=== PATIENT | female | born 1980 | race Asian ===

== ENCOUNTER → 2016-08-06 | Outpatient (CLI) | payer BC ==
[2016-08-06 19:26] LABS: FREE T4 1.09 NG/DL (0.76-1.46)
[2016-08-06 19:30] LABS: PROGESTERONE 3.2 NG/ML
[2016-08-06 19:31] LABS: FOLLICLE STIMULATING HORMONE 2.4 mIU/mL; LUTEINIZING HORMONE 1.1 mIU/mL; PROLACTIN 16.5 NG/ML
== END ==
LOC: M SMT 15:54
PROVIDERS: ATTEND Specialist
DX: N93.8 Other specified abnormal uterine and vaginal bleeding (principal)

== ENCOUNTER → 2017-07-22 | Outpatient (REF) | payer BC ==
[2017-07-24 14:20] LABS: HPV HYBRID CAPTURE II Negative (Negative)
== END ==
LOC: M LAB REF 09:15
DX: Z12.4 Encounter for screening for malignant neoplasm of cervix (principal)
CPT/HCPCS: G0123

== ENCOUNTER → 2017-08-01 | Outpatient (CLI) | payer BC ==
[2017-08-01 16:26] LABS: FOLLICLE STIMULATING HORMONE 2.1 mIU/mL; LUTEINIZING HORMONE 1.5 mIU/mL
[2017-08-01 16:26] LABS: PROGESTERONE 18.3 NG/ML
== END ==
LOC: M LAB 14:27
DX: N93.8 Other specified abnormal uterine and vaginal bleeding (principal)
CPT/HCPCS: 83001

== ENCOUNTER → 2019-07-21 | Outpatient (REF) | payer BC | LOC: M SFHCWAGY 10:13 | PROVIDERS: ATTEND Specialist | DX: Z12.4 Encounter for screening for malignant neoplasm of cervix (principal) | CPT/HCPCS: 87624; G0123 ==

== ENCOUNTER 2019-09-08 07:20 | Day surgery (SDC) | payer BC ==
[~2019-09-08] VITALS: Ht 157.5 cm; Wt 66.3 kg
[2019-09-08] VITALS (7 sets, daily range): BP systolic 97–121; BP diastolic 62–80; O2SAT 97
[~2019-09-08 07:20] MED LIST: FERR325T3 PO; LIDOCAINE 1% MDV 20ML VIAL SQ PRN; LR 1,000 ML IV ONE; MULTCAP PO; VITA200028 PO; ceFAZolin SOD 2 GM in IV 1 EA IV ONE
[2019-09-08 08:08] LABS: HEMATOCRIT 40.4 % (36.0-47.0); HEMOGLOBIN 13.3 g/dl (12.0-15.5); MEAN CORPUSCULAR HEMOGLOBIN 30.8 pg (27.0-33.0); MEAN CORPUSCULAR HGB CONC 32.9 g/dl (32.0-36.5); MEAN CORPUSCULAR VOLUME 93.5 fl (80.0-96.0); PLATELET COUNT, AUTOMATED 216 10^3/uL (150-450); RED BLOOD COUNT 4.32 10^6/uL (4.00-5.40); WHITE BLOOD COUNT 5.9 10^3/uL (4.0-10.0)
[2019-09-08] MEDS ORDERED: LIDOCAINE 2% INJ 100 MG/5 ML SDV (FOR ANES.) As Ordered ONE (08:09)
[2019-09-08] MEDS ORDERED: MIDAZOLAM INJ 2 MG/2 ML VIAL (J2250) As Ordered ONE (08:09)
[2019-09-08] MEDS ORDERED: propofoL 200 MG/20 ML VIAL As Ordered ONE (08:09)
[2019-09-08] MEDS ORDERED: ONDANSETRON 4MG/2ML VIAL (J2405) As Ordered ONE (08:09)
[2019-09-08] MEDS ORDERED: fentaNYL 100 MCG/2 ML INJECTION (J3010) As Ordered ONE ×2 (08:09→11:03)
[2019-09-08] MEDS ORDERED: ROCURONIUM BROMIDE 50 MG/5 ML VIAL As Ordered ONE ×2 (08:09→10:57)
[2019-09-08] MEDS ORDERED: VASOPRESSIN INJ 20 UNITS/ML VIAL As Ordered ONE (09:20)
[2019-09-08] MEDS ORDERED: BUPIVACAINE HCL 0.25% 30 ML VIAL As Ordered ONE (09:20)
[2019-09-08] MEDS ORDERED: HYDROmorphone HCL 2 MG/ML 1ML VIAL (J1170) As Ordered ONE (09:56)
[2019-09-08] MEDS ORDERED: ACETAMINOPHEN 1000MG 100ML IV BTL (OFIRMEV) (J0131 PER 10MG) As Ordered ONE (10:02)
[2019-09-08] MEDS ORDERED: dexameTHASONE 4 MG/ML 1ML VIAL (J1100) As Ordered ONE (10:02)
[2019-09-08] MEDS ORDERED: SUGAMMADEX SODIUM 500 MG/5 ML VIAL (BRIDION) As Ordered ONE (10:08)
[2019-09-08] MEDS ORDERED: KETOROLAC 60 MG/2 ML VIAL (J1885) As Ordered ONE (10:10)
[2019-09-08] MEDS ORDERED: PHENYLephrine HCL 500 MCG/5 ML (100MCG/ML) SYRINGE (J2370) As Ordered ONE (12:05)
[2019-09-08] MEDS ORDERED: ONDANSETRON 4MG/2ML VIAL (J2405) IV PRN ×2 (12:45→13:46)
[2019-09-08] MEDS ORDERED: oxyCODONE 5MG TAB PO PRN (12:45)
[2019-09-08] MEDS ORDERED: fentaNYL 100 MCG/2 ML INJECTION (J3010) IV PRN (12:45)
[2019-09-08] MEDS ORDERED: LR 1,000 ML IV SCH (12:45)
[2019-09-08] MEDS ORDERED: MORPHINE 4 MG/ML 1ML VIAL/SYRINGE (J2270) IV PRN (13:46)
[2019-09-08] MEDS ORDERED: PERCOCET 5MG/325MG TAB PO PRN (13:46)
[2019-09-08] MEDS: LR 1,000 ML IV SCH ×3 (14:27→22:53)
[2019-09-08] MEDS: PERCOCET 5MG/325MG TAB PO PRN ×2 (14:55→18:55)
[2019-09-08] MEDS: PANTOPRAZOLE 40MG TAB (PROTONIX) PO SCH (16:03)
[2019-09-08] MEDS: DOCUSATE SODIUM 100 MG CAP PO SCH (20:43)
[2019-09-08] MEDS: KETOROLAC 30 MG/ML VIAL (J1885) IV PRN (20:55)
[2019-09-09 02:00] VITALS: BP 107/63
[2019-09-09 06:00] VITALS: BP 104/63
[2019-09-09 06:08] LABS: MEAN CORPUSCULAR HEMOGLOBIN 31.3 pg (27.0-33.0); MEAN CORPUSCULAR VOLUME 94.7 fl (80.0-96.0); PLATELET COUNT, AUTOMATED 137 10^3/uL (150-450); RED BLOOD COUNT 2.43 10^6/uL (4.00-5.40); WHITE BLOOD COUNT 7.6 10^3/uL (4.0-10.0)
[2019-09-09 06:35] LABS: HEMOGLOBIN 7.6 g/dl (12.0-15.5)
[2019-09-09] MEDS: LR 1,000 ML IV SCH (06:38)
[2019-09-09] MEDS: KETOROLAC 30 MG/ML VIAL (J1885) IV PRN (06:39)
[2019-09-09] MEDS ORDERED: OXYC1TAB23 PO (08:28)
[2019-09-09] MEDS: PANTOPRAZOLE 40MG TAB (PROTONIX) PO SCH (09:03)
[2019-09-09] MEDS: DOCUSATE SODIUM 100 MG CAP PO SCH ×2 (09:05→21:02)
[2019-09-09 10:00] VITALS: BP 96/50
--- NOTE | 2019-09-09 10:13 | RO ---
DATE OF PROCEDURE: 09/08/2019 PREPROCEDURE DIAGNOSIS: Symptomatic large uterine fibroids. POSTPROCEDURE DIAGNOSIS: Symptomatic large uterine fibroids. PROCEDURE: Laparotomy with Pfannenstiel incision, multiple myomectomy, hysteroscopy, transcervical myomectomy using MyoSure. SURGEON: Brandon Wiley MD. BUNCH BREAKER: Dayanara Barboza MD. ANESTHESIA: General endotracheal. ESTIMATED BLOOD LOSS: 700 mL. URINE OUTPUT: 200 mL. FINDINGS: A large fibroid uterus. Numerous fibroids present, the largest is approximately 12 cm fundal uterine fibroid. Hysteroscopy: There were two anterior 1 cm intracavitary fibroids. Otherwise, the endometrial cavity appeared normal. She had normal ovaries and fallopian tubes bilaterally. DESCRIPTION OF PROCEDURE: Patient taken to the operating room where general endotracheal anesthesia was induced. She was prepped, draped in a sterile fashion in dorsal lithotomy position. A Matthews catheter was placed. A Pfannenstiel incision made with a scalpel carried through to the fascia. The fascia nicked in the center and the fascia was taken down to the rectus muscle. The peritoneal cavity was entered. The uterus with fibroid was elevated through the abdominal incision. Waldron drain was placed at the base of the uterus to use as a tourniquet. A large 12 cm fibroid was injected in the midline with dilute vasopressin solution. An incision was made at the base of the fibroid with electrocoagulation. Isabelle clamps were used to grasp the base of the fibroid. Several small successive bites, was incised and suture ligated. Fibroid was resected from the base of the uterus. The fundal fibroid impacted about 25% of the myometrium. The enlarged fibroid was removed in its entirety. A separate incision was created in the posterior fundus. This allowed access to remove seven more fibroids from the same incision. Fibroids ranged in size from 2 to 4 cm. Fibroids were inspected for myometrial attachments, elevated and the base was then excised using electrocoagulation. There were other fibroids present, which were small and numerous. However, they could not be reached safely through the posterior fundal incision. There were also close to the blood supply of the uterus. The decision was made to not attempt to remove any further fibroids in order to maintain the integrity of the uterus. The base of the myometrium was closed with running locked suture of #2-0 Vicryl. The serosa of the uterus was closed with #2-0 Vicryl suture in a running locked fashion. Several [id number] sutures were placed for hemostasis. The uterus was placed back into the abdominal cavity. Jonah matrix was placed over the incision site. Excellent hemostasis was noted. The peritoneum was closed with #2-0 Vicryl in a running fashion. The fascia was closed with 0 Vicryl in a running fashion. Deep layer was irrigated and closed with #3-0 chromic. The skin was closed with #4-0 Monocryl in subcuticular sutures. Attention was turned to the vagina. A speculum was placed. The anterior lip of the cervix was grasped with the tenaculum. Cervix dilated with taper dilators. An operative hysteroscope using MyoSure was used to visualize the endometrial cavity. Two small anterior fibroids were noted in the intracavitary location as noted above. MyoSure device was used to excise each of the fibroids in their entirety. The endometrial cavity was completely normal at the end of the procedure. The fluid collection system of the MyoSure hysteroscope recorded minimal fluid deficit at the end of the procedure. All instruments were removed. Sponge, instrument and needle counts were correct. The patient was extubated. Dr. Barboza assisted throughout the procedure from beginning to end. He helped remove each fibroid. He was indispensable for the safe completion of the procedure.
[2019-09-09] MEDS: PERCOCET 5MG/325MG TAB PO PRN (11:44)
[2019-09-09 14:00] VITALS: BP 102/66; O2SAT 97
[2019-09-09 14:34] LABS: HEMATOCRIT 25.4 % (36.0-47.0); HEMOGLOBIN 8.3 g/dl (12.0-15.5); MEAN CORPUSCULAR HEMOGLOBIN 31.2 pg (27.0-33.0); MEAN CORPUSCULAR HGB CONC 32.7 g/dl (32.0-36.5); MEAN CORPUSCULAR VOLUME 95.5 fl (80.0-96.0); PLATELET COUNT, AUTOMATED 155 10^3/uL (150-450); RED BLOOD COUNT 2.66 10^6/uL (4.00-5.40); WHITE BLOOD COUNT 8.1 10^3/uL (4.0-10.0)
[2019-09-09 18:00] VITALS: BP 112/69
[2019-09-09] MEDS: IBUPROFEN 800 MG TAB PO PRN (18:22)
[2019-09-09 22:00] VITALS: BP 97/60
[2019-09-10] MEDS: IBUPROFEN 800 MG TAB PO PRN ×2 (00:28→10:46)
[2019-09-10 02:45] VITALS: O2SAT 97
[2019-09-10] MEDS: PERCOCET 5MG/325MG TAB PO PRN (03:52)
[2019-09-10 06:00] VITALS: BP 104/66
[2019-09-10 09:00] VITALS: O2SAT 98
[2019-09-10] MEDS: DOCUSATE SODIUM 100 MG CAP PO SCH (09:37)
[2019-09-10] MEDS: PANTOPRAZOLE 40MG TAB (PROTONIX) PO SCH (09:37)
[2019-09-10] MEDS ORDERED: IBUP80TA PO (09:43)
== END 2019-09-10 12:42 | disposition home or self-care (01) ==
LOC: M SDC 07:20 → M MSPAV 14:02 → M SDC 09-10 12:42
PROVIDERS: ATTEND Specialist
DX: D25.9 Leiomyoma of uterus, unspecified (principal); K21.9 Gastro-esophageal reflux disease without esophagitis; G44.209 Tension-type headache, unspecified, not intractable; J45.909 Unspecified asthma, uncomplicated; Z79.899 Other long term (current) drug therapy
CPT/HCPCS: 36415; 58140; 58558; 81025; 85027; 86850; 86900; 86901; 88305; 96361; 96374; 96375; 96376; J0131; J0690; J1100; J1170; J1885; J2250; J2370; J2405; J3010

== ENCOUNTER → 2020-02-16 | Outpatient (CLI) | payer SELFPAY ==
[~2020-02-16] MED LIST changes: +IBUP80TA PO; -LIDOCAINE 1% MDV 20ML VIAL SQ PRN; -LR 1,000 ML IV ONE; +OXYC1TAB23 PO; -ceFAZolin SOD 2 GM in IV 1 EA IV ONE
== END ==
LOC: M LABSMTC 14:20
PROVIDERS: ATTEND Pediatrics
DX: Z11.59 Encounter for screening for other viral diseases (principal); Z20.828 Contact with and (suspected) exposure to other viral communicable diseases

== ENCOUNTER → 2020-03-28 | Outpatient (CLI) | payer BC | LOC: M LAB 11:09 | PROVIDERS: ATTEND Obstetrics & Gynecology Reproductive Endocrinology | DX: O02.1 Missed abortion (principal) ==

== ENCOUNTER → 2020-10-16 | Outpatient (REF) | payer BC | LOC: M LAB REF 16:39 | PROVIDERS: ATTEND Family Medicine | DX: N39.0 Urinary tract infection, site not specified (principal) ==

== ENCOUNTER → 2020-11-23 | Outpatient (REF) | payer BC | LOC: M SFHCWAGY 17:13 | PROVIDERS: ATTEND Specialist | DX: Z12.4 Encounter for screening for malignant neoplasm of cervix (principal); R87.610 Atypical squamous cells of undetermined significance on cytologic smear of cervix (ASC-US) | CPT/HCPCS: 87624; G0123 ==

== ENCOUNTER → 2020-12-21 | Outpatient (REF) | payer BC | LOC: M SFHCWAGY 13:25 | PROVIDERS: ATTEND Specialist | DX: R87.612 Low grade squamous intraepithelial lesion on cytologic smear of cervix (LGSIL) (principal) ==

== ENCOUNTER → 2021-08-09 | Outpatient (REF) | payer BC | LOC: M SFHCWAGY 13:09 | PROVIDERS: ATTEND Specialist | DX: Z01.419 Encounter for gynecological examination (general) (routine) without abnormal findings (principal); Z12.4 Encounter for screening for malignant neoplasm of cervix ==

== ENCOUNTER → 2021-08-15 | Outpatient (CLI) | payer BC | LOC: M WHC 09:29 | PROVIDERS: ATTEND Specialist | DX: N92.6 Irregular menstruation, unspecified (principal); D25.9 Leiomyoma of uterus, unspecified ==

== ENCOUNTER → 2021-08-31 | Outpatient (CLI) | payer BC | LOC: M WHC 08:33 | PROVIDERS: ATTEND Specialist | DX: Z12.31 Encounter for screening mammogram for malignant neoplasm of breast (principal) ==

== ENCOUNTER → 2021-10-17 | Outpatient (REF) | payer BC | LOC: M LAB REF 16:52 | PROVIDERS: ATTEND Family Medicine | DX: N76.0 Acute vaginitis (principal) ==

== ENCOUNTER → 2021-10-18 | Outpatient (CLI) | payer BC ==
[2021-10-18 13:07] LABS: BASO % 0.7 % (0.0-1.0); EOS # 0.2 10^3/uL (0.0-0.5); HEMOGLOBIN 13.5 g/dl (12.0-15.5); LYMPH # 1.6 10^3/uL (1.5-5.0); LYMPH % 28.1 % (24.0-44.0); MEAN CORPUSCULAR HEMOGLOBIN 31.3 pg (27.0-33.0); MEAN CORPUSCULAR HGB CONC 32.9 g/dl (32.0-36.5); MEAN CORPUSCULAR VOLUME 94.9 fl (80.0-96.0); MONO # 0.4 10^3/uL (0.0-0.8); MONO % 7.8 % (2.0-8.0); NEUTROPHILS # 3.4 10^3/uL (1.5-8.5); PLATELET COUNT, AUTOMATED 229 10^3/uL (150-450); RED BLOOD COUNT 4.32 10^6/uL (4.00-5.40); WHITE BLOOD COUNT 5.6 10^3/uL (4.0-10.0)
[2021-10-18 13:49] LABS: ALT/SGPT 88 U/L (12-78); BILIRUBIN,TOTAL 0.6 MG/DL (0.2-1.0); BLOOD UREA NITROGEN 14 MG/DL (7-18); CALCIUM LEVEL 9.1 MG/DL (8.5-10.1); CARBON DIOXIDE LEVEL 26 MEQ/L (21-32); CHLORIDE LEVEL 108 MEQ/L (98-107); CHOLESTEROL LEVEL 231 MG/DL (<200); CHOLESTEROL RISK RATIO 4.812 (<5); CREATININE FOR GFR 0.76 MG/DL (0.55-1.30); FREE T4 1.09 NG/DL (0.76-1.46); GLOMERULAR FILTRATION RATE > 60.0 (>58); GLUCOSE, FASTING 109 MG/DL (70-100); HCG, SERUM QUANTITATIVE < 1.0 MIU/ML; HDL CHOLESTEROL 48 MG/DL (>40); LDL CHOLESTEROL 159 MG/DL (<100); NON-HDL-C 183 MG/DL; POTASSIUM SERUM 4.4 MEQ/L (3.5-5.1); SODIUM LEVEL 142 MEQ/L (136-145); TOTAL PROTEIN 7.4 GM/DL (6.4-8.2); TRIGLYCERIDES LEVEL 119 MG/DL (<150)
== END ==
LOC: M PLALAB 09:29
PROVIDERS: ATTEND Family Medicine
DX: Z12.39 Encounter for other screening for malignant neoplasm of breast (principal); Z13.0 Encounter for screening for diseases of the blood and blood-forming organs and certain disorders involving the immune mechanism; N92.6 Irregular menstruation, unspecified; Z13.220 Encounter for screening for lipoid disorders

== ENCOUNTER → 2022-01-21 | Outpatient (CLI) | payer BC ==
[2022-01-21 19:00] LABS: ALBUMIN 3.7 GM/DL (3.2-5.2); ALT/SGPT 164 U/L (12-78); BILIRUBIN,TOTAL 0.7 MG/DL (0.2-1.0); BLOOD UREA NITROGEN 9 MG/DL (7-18); CALCIUM LEVEL 9.4 MG/DL (8.5-10.1); CARBON DIOXIDE LEVEL 26 MEQ/L (21-32); CHLORIDE LEVEL 104 MEQ/L (98-107); CREATININE FOR GFR 0.66 MG/DL (0.55-1.30); GLOMERULAR FILTRATION RATE > 60.0 (>58); GLUCOSE, FASTING 98 MG/DL (70-100); POTASSIUM SERUM 3.9 MEQ/L (3.5-5.1); SODIUM LEVEL 136 MEQ/L (136-145); TOTAL PROTEIN 7.2 GM/DL (6.4-8.2)
[2022-01-21 20:57] LABS: HEPATITIS C VIRUS ABY INDEX 0.1 INDEX (<0.8)
[2022-01-22 00:48] LABS: HEMOGLOBIN A1c 6.2 %
== END ==
LOC: M PLALAB 14:15
PROVIDERS: ATTEND Family Medicine
DX: R74.01 Elevation of levels of liver transaminase levels (principal); R73.01 Impaired fasting glucose

== ENCOUNTER → 2022-01-30 | Outpatient (CLI) | payer BC | LOC: M WHC 10:04 | PROVIDERS: ATTEND Family Medicine | DX: K76.0 Fatty (change of) liver, not elsewhere classified (principal); R74.01 Elevation of levels of liver transaminase levels ==

== ENCOUNTER → 2022-02-12 | Outpatient (CLI) | payer BC ==
[~2022-02-12] MED LIST changes: +GASTROGRAFIN SOLUTION 30ML (Q9963) As Ordered ONE; +ISOVUE-370 76% 100ML VIAL As Ordered ONE
== END ==
LOC: M RAD 12:15
PROVIDERS: ATTEND Family Medicine
DX: R68.81 Early satiety (principal); R10.12 Left upper quadrant pain
CPT/HCPCS: 74177; Q9963; Q9967